=== PATIENT | male | born 1975 | race Caucasian/White ===

== ENCOUNTER 2017-07-02 10:49 | Day surgery (SDC) | payer MEDICARE, OTHER ==
[~2017-07-02] VITALS: Ht 167.6 cm; Wt 85.0 kg
[2017-07-02] VITALS (11 sets, daily range): BP systolic 103–126; BP diastolic 51–70; PULSE 62–72; RESP 14–18; Ht 167.6 cm; Wt 85.0 kg
[2017-07-02] MEDS ORDERED: CEFAZOLIN 2 GM/50 ML (PMX) 50 ML IVPB ONE (11:00)
[2017-07-02] MEDS ORDERED: SOD CHLORIDE 0.9% 1,000 ML IV SCH (11:00)
[2017-07-02] MEDS ORDERED: CYAN100080 PO (12:27)
[2017-07-02] MEDS ORDERED: ATOR10TA65 PO (12:27)
[2017-07-02] MEDS ORDERED: PROPOFOL 20 ML ONE (13:54)
[2017-07-02] MEDS ORDERED: FENTAnyl 50 MCG/ML VIAL ONE (13:54)
[2017-07-02] MEDS ORDERED: MIDAZOLAM 1 MG/ML 2 ML INJ ONE (13:54)
[2017-07-02] MEDS ORDERED: CEFAZOLIN 1 GM INJ ONE (13:54)
[2017-07-02] MEDS ORDERED: METOCLOPRAMIDE 10 MG INJ ONE (13:55)
[2017-07-02] MEDS ORDERED: BUPIVACAINE 0.25% (MPF) 30 ML INJ ONE (13:58)
[2017-07-02] MEDS ORDERED: KETOROLAC 30 MG INJ ONE (14:21)
[2017-07-02] MEDS ORDERED: MEPERIDINE 25 MG INJ IV PRN (14:30)
[2017-07-02] MEDS ORDERED: METOCLOPRAMIDE 10 MG INJ IV PRN (14:30)
[2017-07-02] MEDS ORDERED: HYDROmorphONE (0.2 MG/ML) 10ML SYG IV PRN ×3 (14:30)
[2017-07-02] MEDS ORDERED: OXYCODONE/ACETAMINOPHEN (5/325) TAB PO PRN ×2 (14:30)
[2017-07-02] MEDS ORDERED: DIPHENHYDRAMINE 50 MG INJ IV PRN (14:30)
[2017-07-02] MEDS ORDERED: ONDANSETRON 4 MG INJ IV PRN (14:30)
--- NOTE | 2017-07-02 14:39 | OPR ---
Date/Time of Note Date/Time of Note DATE: 07/02/17 TIME: 14:36 Operative Report Procedure Date: Jul 02, 2017 Preoperative Diagnosis right posterior neck mass Postoperative Diagnosis same Operation Performed 1. excision of right posterior neck mass 5 cm mass 5 cm incision 2. localized adjacent tissue transfer with the use of skin flaps 10 sq cm defect 3. therapeutic injection of subcutaneous marcaine Surgeon: Gilbert HUGHES Anesthesia Type: general Estimated Blood Loss: minimal Specimens right posterior neck mass Grafts/Implants: none Complications: no Indications This is a 41-year-old male with a right posterior neck mass. He requires surgical excision. Risks alternatives benefits and percent were discussed the patient. Patient expresses understanding and consents to the operation. Procedure Description Patient is taken to the OR and prepped and draped in usual sterile fashion. Surgical timeout was performed. IV antibiotics are given. 15 blade is used to make an elliptical incision around the right posterior neck mass. Dissection cautery was carried down to the subcutaneous tissues. Due to the large tissue defect superior inferior localized adjacent skin flaps are formed and advanced to closure. The closure was performed a multilayer fashion with interrupted 3- 0 Vicryl and skin jennifer. Therapeutic subcu times Marcaine is injected throughout the incision site. Dry dressings were applied. Gilbert HUGHES Jul 02, 2017 14:39
[2017-07-02] MEDS ORDERED: HYDROCODONE/APAP (5/325) TAB PO ONE (15:00)
== END 2017-07-02 16:15 | disposition home or self-care (01) ==
LOC: SDS 10:49
PROVIDERS: ATTEND Surgery
DX: L72.0 Epidermal cyst (principal); E78.5 Hyperlipidemia, unspecified
CPT/HCPCS: 14040; 88307; J0690; J1885; J2250; J2765; J3010